=== PATIENT | female | born 1985 | race African-American/Black ===

== ENCOUNTER 2023-05-11 20:16 | Emergency (ER) | payer MEDICAID, OTHER ==
[~2023-05-11] VITALS: Ht 170.2 cm; Wt 100.0 kg
[2023-05-11 20:19] VITALS: BP 171/104; PULSE 92; RESP 19; TEMP 98.7; O2SAT 100
== END 2023-05-12 00:32 | disposition home or self-care (01) ==
LOC: ER 20:16
DX: F41.9 Anxiety disorder, unspecified (principal); I10 Essential (primary) hypertension
CPT/HCPCS: 93005; 99283